=== PATIENT | male | born 1940 | race Caucasian/White ===

== ENCOUNTER 2019-03-26 09:18 | Day surgery (SDC) | payer MEDICARE ==
[2019-03-25 17:25] LABS: BASOPHILS % (AUTO) 0.5 % (0-1); EOSINOPHILS # (AUTO) 0.4 X10'3 (0-0.9); EOSINOPHILS % (AUTO) 4.5 % (0-6); HEMATOCRIT 40.8 % (42.0-52.0); HEMOGLOBIN 13.7 g/dl (14.0-17.9); LYMPHOCYTES # (AUTO) 1.6 X10'3 (1.1-4.8); LYMPHOCYTES % (AUTO) 20.3 % (21-51); MEAN CORPUSCULAR HEMOGLOBIN 28.7 PG (27.0-31.0); MEAN CORPUSCULAR HGB CONC 33.5 g/dL (33.0-36.5); MEAN CORPUSCULAR VOLUME 85.7 FL (78-98); MEAN PLATELET VOLUME 9.6 FL (7.4-10.4); MONOCYTES # (AUTO) 0.8 X10'3 (0-0.9); MONOCYTES % (AUTO) 9.8 % (2-12); NEUTROPHILS # (AUTO) 5.2 X10'3 (1.8-7.7); NEUTROPHILS % (AUTO) 64.9 % (42-75); PLATELET COUNT 201 X10'3 (140-440); RED BLOOD COUNT 4.76 X10'6 (4.70-6.10); RED CELL DISTRIBUTION WIDTH 14.1 % (11.5-14.5); WHITE BLOOD COUNT 7.9 X10'3 (4.5-11.0)
[2019-03-25 17:30] LABS: ALBUMIN 3.9 G/DL (3.4-5.0); ANION GAP 10 (8-16); BLOOD UREA NITROGEN 24 MG/DL (7-18); BUN/CREATININE RATIO 21.6 (5.4-32.0); CALCIUM 9.6 MG/DL (8.5-10.1); CHLORIDE 105 MMOL/L (99-107); CREATININE 1.11 MG/DL (0.60-1.10); GLUCOSE 197 MG/DL (70-104); POTASSIUM 4.1 MMOL/L (3.5-5.1); SODIUM 141 MMOL/L (135-145); TOTAL CARBON DIOXIDE 25.6 MMOL/L (24-32); eGFR 64 ML/MIN
[2019-03-25 17:35] LABS: INR 1.1 INR; PARTIAL THROMBOPLASTIN TIME 28 SECONDS (22-32)
[~2019-03-26] VITALS: Ht 182.9 cm; Wt 86.3 kg
[2019-03-26] VITALS (9 sets, daily range): BP systolic 103–135; BP diastolic 62–81
[2019-03-26] MEDS ORDERED: cefazolin/dext.iso 2gm/100 ML IV ONE (09:34)
[2019-03-26] MEDS ORDERED: normal saline 1000ml 1,000 ML IV SCH (09:35)
[2019-03-26] MEDS ORDERED: CARV6.253 PO (10:17)
[2019-03-26] MEDS ORDERED: FURO-150 PO (10:17)
[2019-03-26] MEDS ORDERED: CHOL10002 PO (10:17)
[2019-03-26] MEDS ORDERED: POTA20PA40 PO (10:17)
[2019-03-26] MEDS ORDERED: GABA-530 PO (10:17)
[2019-03-26] MEDS ORDERED: INSU100V12 SQ (10:17)
[2019-03-26] MEDS ORDERED: COU5T PO (10:17)
[2019-03-26] MEDS ORDERED: METF500T PO (10:17)
[2019-03-26] MEDS ORDERED: GABA-532 PO (10:17)
[2019-03-26] MEDS ORDERED: fentaNYL/PF 50MCG/1 ML 2ML syringe ONE (11:49)
[2019-03-26] MEDS ORDERED: midazolam 2 mg/2 ml injection ONE (11:49)
[2019-03-26] MEDS ORDERED: lidocaine 1%/epinephrine 1:100,000 injection 50ml vial ONE (11:49)
[2019-03-26] MEDS ORDERED: ceFAZolin 1000mg inj ONE (11:50)
[2019-03-26] MEDS ORDERED: HYDROcodone/acetaminophen 5mg/325mg tablet PO PRN (14:00)
[2019-03-26] MEDS ORDERED: HYDROcodone/acetaminophen 10/325mg tab PO PRN (14:00)
[2019-03-26] MEDS ORDERED: vancomycin/NS 1 GM ADD-VANTAGE 250 ML IV ONE (15:00)
== END 2019-03-26 17:20 | disposition home or self-care (01) ==
LOC: SSTAY O 09:18
PROVIDERS: ATTEND Internal Medicine Cardiovascular Disease
DX: Z45.02 Encounter for adjustment and management of automatic implantable cardiac defibrillator (principal); I44.2 Atrioventricular block, complete; I25.5 Ischemic cardiomyopathy; I11.0 Hypertensive heart disease with heart failure; I50.20 Unspecified systolic (congestive) heart failure; E11.9 Type 2 diabetes mellitus without complications; E78.5 Hyperlipidemia, unspecified
CPT/HCPCS: 33263; 36415; 71045; 80048; 82948; 85025; 85610; 85730; 93005; 93640; 99152; 99153; C1882; J0690; J2250; J3010; J3370; J3490; J7030; 33264; A4620; A6449